=== PATIENT | female | born 1950 | race Two or more races ===

== ENCOUNTER 2019-02-14 15:17 | Emergency (ER) | payer SELFPAY ==
[~2019-02-14] VITALS: Ht 160 cm; Wt 60.0 kg
[2019-02-14 15:26] VITALS: BP 148/84
== END 2019-02-14 18:04 | disposition home or self-care (01) ==
LOC: ER 15:17
DX: Z76.0 Encounter for issue of repeat prescription (principal); F41.8 Other specified anxiety disorders; R03.0 Elevated blood-pressure reading, without diagnosis of hypertension
CPT/HCPCS: 99283